=== PATIENT | female | born 1935 | race Caucasian/White ===

== ENCOUNTER 2022-07-02 18:52 | Emergency (ER) | payer MEDICARE, BC, SELFPAY ==
[2022-07-02 19:14] VITALS: BP 223/96; PULSE 67; RESP 16; TEMP 36.1; O2SAT 100; BMI 25.7
--- NOTE | 2022-07-02 21:19 | DI.US.S_ITS ---
PROCEDURE: US PERIPH VENOUS LOW EXTREM LT INDICATIONS: EDEMA TECHNIQUE: Real-time imaging, as well as color and pulse Doppler interrogation, were performed of the lower extremity deep veins from the inguinal ligament to the popliteal fossa. COMPARISON: None. FINDINGS: The common femoral, femoral and popliteal veins are normally compressible, and free of intraluminal thrombus. Color and pulse Doppler demonstrate normal phasic intraluminal flow. There is normal augmentation response to distal compression maneuver. IMPRESSION: 1. No evidence of deep venous thrombosis in the left lower extremity. Dictated by: Darwin Hoffman M.D. on 07/02/2022 at 23:00 Approved by: Darwin Hoffman M.D. on 07/02/2022 at 23:01
--- NOTE | 2022-07-02 21:19 | ED.EXTPRO ---
HPI - Extremity Problem General Chief complaint: Extremity Problem,Nontraumatic Stated complaint: sore LT leg pos. blood clot PCP ref Time Seen by Provider: 07/02/22 20:12 Source: patient Mode of arrival: Ambulatory History of Present Illness HPI Narrative: Patient is an 87-year-old female. She is on anticoagulation who is here for evaluation of discoloration and swelling to her left lower extremity that has been going on for the past couple days. She sent a picture to her oncologist who recommended that she come to the emergency department for evaluation of a possible DVT. She has swelling what appears to be bruising on mostly the anterior and medial aspect of the left lower extremity from the knee to the ankle. It does not cross the knee or the ankle. She reports no specific trauma. Related Data Allergies Allergy/AdvReac Type Severity Reaction Status Date / Time No Known Drug Allergies Allergy Verified 07/02/22 19:25 Review of Systems Constitutional Constitutional: Reports system reviewed and no additional complaints, except as documented Musculoskeletal Musculoskeletal: Reports system reviewed and no additional complaints, except as documented Integumentary/Breasts Skin/Breast: Reports system reviewed and no additional complaints, except as documented Neurologic Neurologic: Reports system reviewed and no additional complaints, except as documented Hematologic/Lymphatic On Anticoagulants: Yes Patient History Social History Smoking Status: Never smoker Smoking Status: Never smoker Substance Use Type: does not use Exam Initial Vital Signs Initial Vital Signs: Vital Signs Temperature 97 F L 07/02/22 19:14 Pulse Rate 67 07/02/22 19:14 Respiratory Rate 16 07/02/22 19:14 Blood Pressure 223/96 H 07/02/22 19:14 Pulse Oximetry 100 07/02/22 19:14 Oxygen Delivery Method Room Air 07/02/22 19:14 HENMT Head: normal to inspection Skin Other: Patient has what appears to be bruising to the lower extremity in the anterior and medial aspect from the knee to the ankle. There is no breaks in the skin. No signs of cellulitis. Neuro Sensory Exam: no sensory deficits noted Extrem Other: Very mild swelling with the left lower extremity Course Orders Ordered: ED Orders 07/02/22 21:19 US periph venous low extrem lt Stat Vital Signs Vital signs: Vital Signs - 8 hr 07/02/22 19:14 07/02/22 23:07 Temperature 97 F L Pulse Rate 67 67 Respiratory Rate 16 16 Blood Pressure 223/96 H 180/84 H Pulse Oximetry 100 98 Oxygen Delivery Method Room Air Room Air MDM - Extremity (Nontraumatic) Imaging Data US - DVT: Radiologist's Impression: PROCEDURE:? US PERIPH VENOUS LOW EXTREM LT ? INDICATIONS:? EDEMA ? TECHNIQUE:? Real-time imaging, as well as color and pulse Doppler interrogation, were performed of the lower extremity deep veins from the inguinal ligament to the popliteal fossa.? ? COMPARISON:? None. ? FINDINGS:? The common femoral, femoral and popliteal veins are normally compressible, and free of intraluminal thrombus.? Color and pulse Doppler demonstrate normal phasic intraluminal flow.? There is normal augmentation response to distal compression maneuver. ? ? IMPRESSION:? ? 1. No evidence of deep venous thrombosis in the left lower extremity. [facility] Narrative Medical decision making narrative: Patient is neurovascularly intact. Her physical exam today is more consistent with a bruise most likely secondary to her anticoagulation. It is not consistent with cellulitis. DVT ultrasound negative for DVT. She is strong DP pulses on the left and brisk capillary refill. Advise she continue to take all of her medications as directed. Also advised that she contact her primary doctor and also her oncologist for follow-up. She was given return precautions. She expressed understanding and agreement Discharge Plan Departure Patient Disposition: Home Clinical Impression: Discoloration of skin of lower leg Activity Restrictions/Additional Instructions: I recommend that you continue to take all of your medications as directed. Keep all of your scheduled medical appointments. Return to the emergency department for new or worsening symptoms. Referrals: Gabriel Small MD [Primary Care Provider] - Stand Alone Forms: Patient Portal/API
[2022-07-02 23:07] VITALS: BP 180/84; PULSE 67; RESP 16; O2SAT 98
== END 2022-07-02 23:23 | disposition home or self-care (01) ==
PROVIDERS: Emergency Provider Emergency Medicine; PCP Internal Medicine
DX: R60.9 Edema, unspecified (principal); L81.9 Disorder of pigmentation, unspecified
CPT/HCPCS: 93971; 99283